=== PATIENT | female | born 1945 | race Caucasian/White ===

== ENCOUNTER 2017-04-17 06:14 | Day surgery (SDC) | payer MEDICARE, OTHER ==
--- NOTE | 2017-04-17 05:55 | HP ---
HISTORY OF PRESENT ILLNESS: Ms. Espinosa presents for history of low back pain as well as bilateral buttock and radiating left lower extremity pains. She has previously had an L5-S1 decompression pe rformed elsewhere many years ago. MRI recently performed reveals lumbar stenosis at L4-L5 as well a s grade I spondylolisthesis at L4-L5 that appears to be mobile on flexion and extension films. Even treating this with medications and physical therapy. She did not want to do more epidural st eroid injections citing adverse reactions and would prefer to move forward with surgery if we deem i t is a possibility. PAST MEDICAL HISTORY: Significant for hypertension and hyperlipidemia. CURRENT MEDICATIONS: Lisinopril and simvastatin. ALLERGIES: No known drug allergies. PAST SURGICAL HISTORY: Previous laminectomy. PHYSICAL EXAMINATION: NEUROLOGIC: The patient is alert and oriented x3. Gait is severely antalgic and slow. ASSESSMENT: Lumbar spinal stenosis and spondylolisthesis. PLAN: Dr. Ribeiro met with the patient, reviewed imaging and ultimately advocated for L4 through S1 f acetectomy and fusion. He explained to the patient the risks, benefits, and alternatives of the pro cedure. The patient expressed understanding and would like to move forward with surgery as guido barboza. I do believe the patient is mentally competent and capable of making medical decisions for herse lf and we will move forward with surgery as planned. This is Bertin Garay PA-C dictating for Dr. Ribeiro.
[2017-04-17] MEDS ORDERED: Thrombin 5000 UNITS/5 ML VIAL ONE (06:31)
[2017-04-17] MEDS ORDERED: Bupivacaine HCl 0.5%/Epinephrine 1:200,000/PF 30 ml Vial ONE (06:31)
[2017-04-17] MEDS ORDERED: Fentanyl 100 MCG/2 ML VIAL ONE (06:54)
== END 2017-04-17 08:56 | disposition home or self-care (01) ==
LOC: SDC 06:14
PROVIDERS: ATTEND Neurological Surgery
DX: M43.16 Spondylolisthesis, lumbar region (principal); M54.16 Radiculopathy, lumbar region; J44.9 Chronic obstructive pulmonary disease, unspecified; F17.210 Nicotine dependence, cigarettes, uncomplicated; I10 Essential (primary) hypertension; E78.5 Hyperlipidemia, unspecified; E66.9 Obesity, unspecified; Z68.32 Body mass index [BMI] 32.0-32.9, adult; Z79.899 Other long term (current) drug therapy; Z98.49 Cataract extraction status, unspecified eye; Z98.890 Other specified postprocedural states
CPT/HCPCS: J0131; J0670; J1170; J3010

== ENCOUNTER 2018-03-04 08:48 | Day surgery (SDC) | payer MEDICARE, OTHER ==
[2018-03-04] MEDS ORDERED: PROPOFOL 200 MG/20 ML VIAL ONE (13:33)
[2018-03-04] MEDS ORDERED: Lidocaine 1% PF 5 ML VIAL ONE (13:33)
--- NOTE | 2018-03-04 16:59 | OP ---
DATE OF PROCEDURE: 03/04/2018 OPERATIVE PROCEDURE: Colonoscopy with polypectomy, colonoscopy with biopsy. PREOPERATIVE DIAGNOSIS: Colon cancer screening. POSTOPERATIVE DIAGNOSES: 1. Broad based sessile polyp, ascending colon. 2. Sessile polyp transverse colon. 3. Sigmoid diverticular disease. 4. Hemorrhoids. PROCEDURE NOTE: The patient was placed on her left lateral position and was given sedation by Anesth esia Department. A rectal exam was done before the scope was advanced into the rectum. No lesions f elt on rectal exam. A [employer]ax video colonoscope was introduced into the rectum and advanced all the w ay into the cecum. The prep was good. The mucosa appears normal throughout the colon. The ileoceca l area, cecum, no pathology seen. A sessile ascending colon polyp removed with biopsy forceps. The hepatic flexure, no lesions. She has broad based sessile polyp over the transverse colon removed wit h cautery with good hemostasis. The splenic flexure and descending colon, no pathology seen. The si gmoid colon showed scattered diverticulosis. Rectum showed hemorrhoids. DISCHARGE PLANNING: This is a 72-year-old female who came for a colonoscopy. She underwen t a colonoscopic polypectomy and biopsy. DISCHARGE RECOMMENDATIONS: 1. The patient advised to call me if you have abdominal pain, hematochezia or fever. 2. In the absence of any other symptoms, the patient to come back to me in 2 weeks. 3. The patient will probably come back for a repeat colonoscopy and I believe 3 years. 4. I will avail the biopsy report and get further recommendation.
== END 2018-03-04 12:20 | disposition home or self-care (01) ==
LOC: SDC 08:48
PROVIDERS: ATTEND Internal Medicine Gastroenterology
PROC: 0DBK8ZX Excision of Ascending Colon, Via Natural or Artificial Opening Endoscopic, Diagnostic (ICD-10-PCS; principal; 2018-03-04)
PROC: 0D5L8ZZ Destruction of Transverse Colon, Via Natural or Artificial Opening Endoscopic (ICD-10-PCS; 2018-03-04)
DX: Z12.11 Encounter for screening for malignant neoplasm of colon (principal); D12.2 Benign neoplasm of ascending colon; D12.3 Benign neoplasm of transverse colon; K57.30 Diverticulosis of large intestine without perforation or abscess without bleeding; K64.9 Unspecified hemorrhoids; I10 Essential (primary) hypertension; Z79.82 Long term (current) use of aspirin; Z79.899 Other long term (current) drug therapy
CPT/HCPCS: 88305; J2001; J2704